=== PATIENT | female | born 1985 | race African-American/Black ===

== ENCOUNTER 2021-03-01 14:17 | Emergency (ER) | payer MEDICAID ==
[~2021-03-01] VITALS: Ht 165.1 cm; Wt 57.0 kg
[2021-03-01 14:25] VITALS: BP 119/71
== END 2021-03-01 22:15 | disposition left against medical advice (07) ==
LOC: ER 14:17
DX: Z53.21 Procedure and treatment not carried out due to patient leaving prior to being seen by health care provider (principal); I49.9 Cardiac arrhythmia, unspecified
CPT/HCPCS: 93005